=== PATIENT | female | born 1980 | race Caucasian/White ===

== ENCOUNTER → 2017-05-07 | Outpatient (CLI) | payer BC | END | disposition home or self-care (01) | LOC: CFH 14:08 | PROVIDERS: ATTEND Registered Nurse | DX: E04.2 Nontoxic multinodular goiter (principal) | CPT/HCPCS: 76536 ==

== ENCOUNTER → 2017-10-07 | Outpatient (CLI) | payer BC ==
[~2017-10-07] MED LIST: LIDOCAINE 1%, 10ML ONE
== END | disposition home or self-care (01) ==
LOC: RAD 14:04
PROVIDERS: ATTEND Internal Medicine Endocrinology, Diabetes & Metabolism
DX: E04.2 Nontoxic multinodular goiter (principal)
CPT/HCPCS: 76942; 88172; 88173; J3490